=== PATIENT | male | born 2000 | race Caucasian/White ===

== ENCOUNTER 2018-04-14 22:25 | Emergency (ER) | payer OTHER ==
[2018-04-14] MEDS ORDERED: cefTRIAXone 1 GM Vial IM ONE (22:53)
--- NOTE | 2018-04-14 22:54 | EDM.PDOC ---
ED HPI GENERAL MEDICAL PROBLEM - General Chief Complaint: ENT Problem Stated Complaint: PT MOUTH BLEEDING Time Seen by Provider: 04/14/18 22:53 Source of Information: Reports: Patient - History of Present Illness INITIAL COMMENTS - FREE TEXT/NARRATIVE: HISTORY AND PHYSICAL: History of present illness: [Patient describes bleeding from his gums and actual clots in his mouth intermittently, is gone, circumflex currently nonbleeding with no petechiae or bruising, he does chew tobacco and has some gingivitis likely associated with the chewing tobacco, he also complains of diffuse dental pain although dentition appears generally healthy without swelling, he is tender upper and lower jaw on clinical exam slightly more tender on the left lower side again no associated swelling or obvious abscess He does have a dental appointment scheduled for 845 tomorrow morning He is in no acute distress at current ] Review of systems: As per history of present illness and below otherwise all systems reviewed and negative. Past medical history: As per history of present illness and as reviewed below otherwise noncontributory. Surgical history: As per history of present illness and as reviewed below otherwise noncontributory. Social history: No reported history of drug or alcohol abuse. Family history: As per history of present illness and as reviewed below otherwise noncontributory. Physical exam: HEENT: Atraumatic, normocephalic, pupils reactive, negative for conjunctival pallor or scleral icterus, mucous membranes moist, throat clear, neck supple, nontender, trachea midline. Oral exam as per history of present illness Lungs: Clear to auscultation, breath sounds equal bilaterally, chest nontender. Heart: S1S2, regular, negative for clicks, rubs, or JVD. Abdomen: Soft, nondistended, nontender. Negative for masses or hepatosplenomegaly. Negative for costovertebral tenderness. Pelvis: Stable nontender. Genitourinary: Deferred. Rectal: Deferred. Extremities: Atraumatic, negative for cords or calf pain. Neurovascular unremarkable. Neuro: Awake, alert, oriented. Cranial nerves II through XII unremarkable. Cerebellum unremarkable. Motor and sensory unremarkable throughout. Exam nonfocal. Diagnostics: []CBC INR Therapeutics: []Rocephin 1 g IM Toradol 60 IM Impression: [] dental pain Definitive disposition and diagnosis as appropriate pending reevaluation and review of above. 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 [No Known Home Meds] 04/14/18 [History] Social & Family History - Tobacco Use Smoking Status *Q: Current Every Day Smoker Years of Tobacco use: 1 Packs/Tins Daily: 1 - Recreational Drug Use Recreational Drug Use: No ED ROS GENERAL - Review of Systems Review Of Systems: See Below ED EXAM, GENERAL - Physical Exam Exam: See Below Course - Vital Signs Last Recorded V/S: Last Vital Signs Temp 98.3 F 04/14/18 22:40 Pulse 73 04/14/18 22:40 Resp 18 04/14/18 22:40 BP 131/70 04/14/18 22:40 Pulse Ox 99 04/14/18 22:40 - Orders/Labs/Meds Orders: Active Orders 24 hr Category Date Time Status CBC WITH AUTO DIFF [HEME] Stat Lab 04/14/18 22:54 Ordered INR,PT,PROTHROMBIN TIME [COAG] Stat Lab 04/14/18 22:54 Ordered Meds: Medications Discontinued Medications Generic Name Dose Route Start Last Admin Trade Name Rajeshq PRN Reason Stop Dose Admin Ceftriaxone Sodium 1 gm 04/14/18 22:53 Rocephin IM 04/14/18 22:54 ONETIME ONE Lidocaine HCl Confirm 04/14/18 22:58 Xylocaine-Mpf 1% Administered 04/14/18 22:59 Dose 2 mls @ as directed .ROUTE .STK-MED ONE Ketorolac Tromethamine 60 mg 04/14/18 22:59 Toradol IM 04/14/18 23:00 ONETIME ONE Departure - Departure Time of Disposition: 23:04 Disposition: Home, Self-Care 01 Condition: Good Clinical Impression: Pain, dental - Discharge Information Referrals: PCP,None [Primary Care Provider] - Forms: ED Department Discharge Additional Instructions: The following information is given to patients seen in the emergency department who are being discharged to home. This information is to outline your options for follow-up care. We provide all patients seen in our emergency department with a follow-up referral. The need for follow-up, as well as the timing and circumstances, are variable depending upon the specifics of your emergency department visit. If you don't have a primary care physician on staff, we will provide you with a referral. We always advise you to contact your personal physician following an emergency department visit to inform them of the circumstance of the visit and for follow-up with them and/or the need for any referrals to a consulting specialist. The emergency department will also refer you to a specialist when appropriate. This referral assures that you have the opportunity for follow-up care with a specialist. All of these measure are taken in an effort to provide you with optimal care, which includes your follow-up. Under all circumstances we always encourage you to contact your private physician who remains a resource for coordinating your care. When calling for follow-up care, please make the office aware that this follow-up is from your recent emergency room visit. If for any reason you are refused follow-up, please contact the [facility] emergency department at and asked to speak to the emergency department charge nurse. - My Orders Last 24 Hours: My Active Orders 04/14/18 22:54 CBC WITH AUTO DIFF [HEME] Stat INR,PT,PROTHROMBIN TIME [COAG] Stat - Assessment/Plan Last 24 Hours: My Active Orders 04/14/18 22:54 CBC WITH AUTO DIFF [HEME] Stat INR,PT,PROTHROMBIN TIME [COAG] Stat
[2018-04-14] MEDS ORDERED: Lidocaine 1% 2 ML ONE (22:58)
[2018-04-14] MEDS ORDERED: Ketorolac 60 MG/2 ML SDV IM ONE (22:59)
[2018-04-14] MEDS ORDERED: Lidocaine 1% 20 ML MDV INJECT ONE (23:06)
[2018-04-14] MEDS ORDERED: Lidocaine 1% PF 2 ML SDV INJECT ONE (23:06)
== END 2018-04-14 23:30 | disposition home or self-care (01) ==
LOC: MW.ED 22:25
DX: K08.89 Other specified disorders of teeth and supporting structures (principal); F17.220 Nicotine dependence, chewing tobacco, uncomplicated
CPT/HCPCS: 36415; 85025; 85610; 96372; 99283; J0696; J1885; J2001